=== PATIENT | male | born 2000 | race Caucasian/White ===

== ENCOUNTER 2023-10-18 18:44 | Emergency (ER) | payer BC ==
[~2023-10-18] VITALS: Ht 188 cm; Wt 88.6 kg
[2023-10-18] MEDS ORDERED: DIPHTH,PERTUSS(ACELL),TET VAC 0.5 ML SYRINGE IM ONE (19:00)
[2023-10-18] MEDS ORDERED: CITALOPRAM HBR20 MG PO (19:03)
[2023-10-18 20:06] VITALS: BP 139/76
== END 2023-10-18 20:10 | disposition home or self-care (01) ==
LOC: ED 18:44
DX: S81.011A Laceration without foreign body, right knee, initial encounter (principal); W26.8XXA Contact with other sharp object(s), not elsewhere classified, initial encounter; Z23 Encounter for immunization; Z79.899 Other long term (current) drug therapy
CPT/HCPCS: 90715